=== PATIENT | female | born 1975 | race Caucasian/White ===

== ENCOUNTER 2016-10-06 19:49 | Emergency (ER) | payer OTHER ==
[2016-10-06 21:11] VITALS: BP 132/47
--- NOTE | 2016-10-06 21:34 | UC ---
Throat Pain/Nasal Diony HPI - HPI Summary HPI Summary: pt c/o nasal congestion, sinus pressure and PND X 1 month. Pt has taken a 10 day prescription of amoxicillin and a z- pack in the last 20 days. Pt reports no improvement in nasal congestion and sinus pressure. - History of Current Complaint Chief Complaint: UCGeneralIllness Stated Complaint: SINUS COMPLAINT Time Seen by Provider: 10/06/16 21:08 Hx Obtained From: Patient Hx Last Menstrual Period: 08/2016 tubal ?: No Onset/Duration: Gradual Onset, Lasting Weeks Severity: Mild Cough: Nonproductive Associated Signs & Symptoms: Positive: Hoarseness, Sinus Discomfort - Allergies/Home Medications Allergies/Adverse Reactions: Allergies Allergy/AdvReac Type Severity Reaction Status Date / Time No Known Allergies Allergy Verified 10/06/16 21:11 Home Medications: Home Medications Albiglutide [Tanzeum] 30 mg SC WEEKLY 10/06/16 [History Confirmed 10/06/16] [place]-3 Fatty Acids (Nf) [Fish Oil (NF)] 2 tab PO BID 10/06/16 [History Confirmed 10/06/16] metFORMIN* [Glucophage*] 500 mg PO BID 10/06/16 [History Confirmed 10/06/16] PMH/Surg Hx/FS Hx/Imm Hx Previously Healthy: No - see pmh Endocrine History Of: Reports: Diabetes - TYPE 2 DM, Thyroid Disease, Hypothyroidism Cardiovascular History Of: Denies: Hypertension, Pacemaker/ICD Psychological History Of: Reports: Anxiety - ON MED, Depression - ON MED - Surgical History Surgical History: Yes Surgery Procedure, Year, and Place: TONSILS AGE 3-CORTLND. 2 C-SECTIONS- [place]. TUBAL [id number] - Family History Known Family History: Positive: Other - positive [facility] for URI - Social History Alcohol Use: Rare Alcohol Amount: EVERY 6 MONTHS Substance Use Type: None Smoking Status (MU): Heavy Every Day Tobacco Smoker Type: Cigarettes Amount Used/How Often: 1 ppd Length of Time of Smoking/Using Tobacco: 27 YRS Have You Smoked in the Last Year: Yes - Immunization History Most Recent Influenza Vaccination: DID NOT RECEIVE Most Recent Tetanus Shot: UNSURE Most Recent Pneumonia Vaccination: NEVER Review of Systems Constitutional: Chills, Fatigue Skin: Negative Eyes: Negative ENT: Sore Throat, Other - nasal congestion, sinus pressure Respiratory: Cough Cardiovascular: Negative Gastrointestinal: Negative Genitourinary: Negative Motor: Negative Neurovascular: Negative Musculoskeletal: Negative Neurological: Headache Psychological: Negative All Other Systems Reviewed And Are Negative: Yes Physical Exam Triage Information Reviewed: Yes Appearance: Ill-Appearing Vital Signs: Initial Vital Signs Temp 97.3 F 10/06/16 21:04 Pulse 80 10/06/16 21:04 Resp 18 10/06/16 21:04 BP 132/47 10/06/16 21:04 Pulse Ox 100 10/06/16 21:04 Vital Signs Reviewed: Yes Eye Exam: Normal ENT Exam: Other ENT: Positive: Nasal congestion, Other: - frontal and maxillary facial pressure/ tenderness Dental Exam: Other Dental: Positive: Other: - all teeth removed Neck exam: Normal Respiratory Exam: Normal Cardiovascular Exam: Normal Musculoskeletal Exam: Normal Neurological Exam: Normal Psychological Exam: Normal Skin Exam: Normal Throat Pain/Nasal Course/Dx - Differential Dx/Diagnosis Differential Diagnosis/HQI/PQRI: Influenza, Sinusitis, URI Provider Diagnoses: Rhinosinusitis Discharge - Discharge Plan Condition: Stable Disposition: HOME Prescriptions: Loratadine & Pseudoephedrine [Claritin-D 24 Hour 10-240 mg] 1 tab PO DAILY #14 tab Patient Education Materials: Rhinosinusitis (ED) Referrals: Mitali Shea PA [Primary Care Provider] -
== END 2016-10-06 21:43 | disposition home or self-care (01) ==
LOC: UCCORT 19:49
DX: J32.9 Chronic sinusitis, unspecified (principal); E11.9 Type 2 diabetes mellitus without complications; Z79.84 Long term (current) use of oral hypoglycemic drugs; F17.210 Nicotine dependence, cigarettes, uncomplicated
CPT/HCPCS: 99212; G0463

== ENCOUNTER 2017-02-02 19:16 | Emergency (ER) | payer OTHER ==
--- NOTE | 2017-02-02 20:19 | UC ---
Throat Pain/Nasal Diony HPI - HPI Summary HPI Summary: complaint of nasal congestion that started approx 1 week ago non productive cough sore throat bilateral ear pain denies fever chills, fatigue tried muciinex without relief in the past was put on an allergy medication for the same symptoms and resolved complaint of rash under breasts for the last 3 days rash is extremely itchy tried A&D ointment without relief - History of Current Complaint Chief Complaint: UCRespiratory Stated Complaint: SINUSES Time Seen by Provider: 02/02/17 20:13 Hx Obtained From: Patient Hx Last Menstrual Period: 01/19/17 - Allergies/Home Medications Allergies/Adverse Reactions: Allergies Allergy/AdvReac Type Severity Reaction Status Date / Time No Known Allergies Allergy Verified 02/02/17 20:06 PMH/Surg Hx/FS Hx/Imm Hx Previously Healthy: Yes Endocrine History: Diabetes, Dyslipidemia Cardiovascular History: Hypertension Psychological History: Anxiety, Depression - Surgical History Surgical History: Yes Surgery Procedure, Year, and Place: TONSILS AGE 3-CORTLND. 2 C-SECTIONS- [place]. TUBAL [id number] - Family History Known Family History: Positive: Other - positive [facility] for URI - Social History Occupation: Employed Full-time Lives: With Family Alcohol Use: Rare Alcohol Amount: EVERY 6 MONTHS Substance Use Type: None Smoking Status (MU): Heavy Every Day Tobacco Smoker Type: Cigarettes Amount Used/How Often: 4-5 per day Length of Time of Smoking/Using Tobacco: 27 YRS Have You Smoked in the Last Year: Yes Cessation Counseling: Patient Advised to Stop - Immunization History Most Recent Influenza Vaccination: DID NOT RECEIVE Most Recent Tetanus Shot: UNSURE Most Recent Pneumonia Vaccination: NEVER Review of Systems Constitutional: Negative Skin: Rash Eyes: Negative ENT: Sore Throat, Ear Ache, Nasal Discharge Respiratory: Cough Cardiovascular: Negative Gastrointestinal: Negative Genitourinary: Negative Motor: Negative Neurovascular: Negative Musculoskeletal: Negative Neurological: Negative Psychological: Negative All Other Systems Reviewed And Are Negative: Yes Physical Exam Triage Information Reviewed: Yes Appearance: No Pain Distress, Well-Nourished Vital Signs: Initial Vital Signs Temp 98.3 F 02/02/17 19:59 Pulse 81 02/02/17 19:59 Resp 18 02/02/17 19:59 BP 123/63 02/02/17 19:59 Pulse Ox 98 02/02/17 19:59 Vital Signs Reviewed: Yes Eyes: Positive: Conjunctiva Clear ENT: Positive: Pharyngeal erythema, Nasal congestion, Nasal drainage, TMs normal. Negative: Tonsillar swelling, Tonsillar exudate Neck: Positive: No Lymphadenopathy Respiratory: Positive: Lungs clear, Normal breath sounds, No respiratory distress, No accessory muscle use Cardiovascular: Positive: RRR, No Murmur, Pulses Normal Abdomen Description: Positive: Nontender, Soft Bowel Sounds: Positive: Present Musculoskeletal: Positive: No Edema Neurological: Positive: Alert Psychological Exam: Normal Skin: Positive: Other - under breasts - bright red Throat Pain/Nasal Course/Dx - Differential Dx/Diagnosis Differential Diagnosis/HQI/PQRI: URI Provider Diagnoses: seasonal allergies, fungel rash under breasts ,URI Discharge - Discharge Plan Condition: Stable Disposition: HOME Prescriptions: Benzonatate CAP* [Tessalon 100 MG CAP*] 100 mg PO TID #30 cap Clotrimazole 1% CREAM* [Clotrimazole 1%*] 1 applic TOPICAL BID #1 tube Loratadine & Pseudoephedrine [Claritin-D 24 Hour 10-240 mg] 1 tab PO DAILY #14 tab Patient Education Materials: Allergies (ED), Upper Respiratory Infection (ED), Antifungals (On the skin) Referrals: Mitali Shea PA [Primary Care Provider] - Additional Instructions: Please start clotrimazole on rash as directed, keep rash clean and dry start medication for cough and nasal congestion as directed Increase fluids and rest Take acetaminophen or ibuprofen for fever or pain Please review your discharge instructions. If your symptoms do not improve please call your primary care provider or return to urgent care.
[2017-02-02 20:30] VITALS: BP 123/63
== END 2017-02-02 20:40 | disposition home or self-care (01) ==
LOC: UCCORT 19:16
DX: J30.2 Other seasonal allergic rhinitis (principal); B36.9 Superficial mycosis, unspecified; J06.9 Acute upper respiratory infection, unspecified; E11.9 Type 2 diabetes mellitus without complications; E78.5 Hyperlipidemia, unspecified; I10 Essential (primary) hypertension; F41.9 Anxiety disorder, unspecified; F32.9 Major depressive disorder, single episode, unspecified; F17.210 Nicotine dependence, cigarettes, uncomplicated
CPT/HCPCS: 99212; G0463

== ENCOUNTER 2017-05-14 11:30 | Emergency (ER) | payer OTHER ==
[2017-05-14 12:23] VITALS: BP 149/83
--- NOTE | 2017-05-14 12:50 | UC ---
Respiratory Complaint HPI - HPI Summary HPI Summary: cough and congestion for 5 days. Rafaelaphillyandres gabyalex has helped in the past. - History of Current Complaint Chief Complaint: UCRespiratory Stated Complaint: CONGESTION,COUGH Time Seen by Provider: 05/14/17 12:17 Hx Obtained From: Patient, Family/[facility] Counselor Hx Last Menstrual Period: 05/08/17 Onset/Duration: Gradual Onset, Lasting Days Timing: Constant Severity Initially: Moderate Severity Currently: Moderate Character: Cough: Nonproductive Aggravating Factors: Deep Breaths, Recumbent Position Alleviating Factors: Nothing Associated Signs And Symptoms: Positive: URI, Nasal Congestion, Hoarseness. Negative: Fever, Chills, Pleuritic Chest Pain, Wheezing, Hemoptysis, Dizziness, Calf Pain, Calf Swelling - Risk Factors Pulmonary Embolism Risk Factors: Smoking - Allergies/Home Medications Allergies/Adverse Reactions: Allergies Allergy/AdvReac Type Severity Reaction Status Date / Time seasonal Allergy Coughing Uncoded 05/14/17 12:23 PMH/Surg Hx/FS Hx/Imm Hx Previously Healthy: No - smoker. - Surgical History Surgical History: Yes Surgery Procedure, Year, and Place: TONSILS AGE 3-CORTLND. 2 C-SECTIONS- [place]. TUBAL [id number] - Family History Known Family History: Positive: Other - positive [facility] for URI - Social History Lives: With Family Alcohol Use: Rare Alcohol Amount: EVERY 6 MONTHS Substance Use Type: None Smoking Status (MU): Heavy Every Day Tobacco Smoker Type: Cigarettes Amount Used/How Often: 1 ppd Length of Time of Smoking/Using Tobacco: 27 YRS Have You Smoked in the Last Year: Yes - Immunization History Most Recent Influenza Vaccination: DID NOT RECEIVE Most Recent Tetanus Shot: UNSURE Most Recent Pneumonia Vaccination: NEVER Review of Systems ENT: Sore Throat, Sinus Congestion Respiratory: Cough All Other Systems Reviewed And Are Negative: Yes Physical Exam Triage Information Reviewed: Yes Appearance: Well-Appearing, Well-Nourished, Obese Vital Signs: Initial Vital Signs Temp 98 F 05/14/17 12:16 Pulse 71 05/14/17 12:16 Resp 20 05/14/17 12:16 BP 149/83 05/14/17 12:16 Pulse Ox 96 05/14/17 12:16 Vital Signs Reviewed: Yes Eye Exam: Normal ENT: Positive: Pharyngeal erythema, TMs normal. Negative: Tonsillar swelling, Tonsillar exudate, Trismus, Muffled/hoarse voice Neck exam: Normal Neck: Positive: Supple, Nontender, No Lymphadenopathy Respiratory Exam: Other - negative egophony. Respiratory: Positive: Normal breath sounds, No respiratory distress, No accessory muscle use. Negative: Respiratory distress, Decreased breath sounds, Accessory muscle use, Crackles, Rhonchi, Stridor, Wheezing Cardiovascular: Positive: No Murmur Abdominal Exam: Normal Musculoskeletal Exam: Normal Musculoskeletal: Positive: Strength Intact, ROM Intact, No Edema Neurological Exam: Normal Psychological Exam: Normal Skin Exam: Normal UC Diagnostic Evaluation - Laboratory O2 Sat by Pulse Oximetry: 96 Respiratory Course/Dx - Course Course Of Treatment: viral uri symptoms. we discussed supportive care and delayed antibiotics to be started on day 9-10 if not improving. - Differential Dx/Diagnosis Provider Diagnoses: uri Discharge - Discharge Plan Condition: Good Disposition: HOME Prescriptions: Azithromyxin GOVIND (NF) [Z-Govind (Zithromax) 250 mg tabs #6] 1 tab PO .TODAY, THEN 1 DAILY #6 tab Benzonatate CAP* [Tessalon 100 MG CAP*] 100 mg PO TID PRN #20 cap PRN Reason: Cough Loratadine & Pseudoephedrine [Claritin-D 24 Hour 10-240 mg] 1 tab PO DAILY #14 tab Patient Education Materials: Upper Respiratory Infection (ED) Referrals: Mitali Shea PA [Primary Care Provider] - If Needed Additional Instructions: start azithromycin if not improving in another 4 days.
== END 2017-05-14 12:51 | disposition home or self-care (01) ==
LOC: UCCORT 11:30
DX: J06.9 Acute upper respiratory infection, unspecified (principal); F17.210 Nicotine dependence, cigarettes, uncomplicated
CPT/HCPCS: 99212; G0463

== ENCOUNTER 2018-02-01 15:55 | Emergency (ER) | payer OTHER ==
[2018-02-01 16:19] VITALS: BP 123/77
--- NOTE | 2018-02-01 16:56 | UC ---
Skin Complaint HPI - HPI Summary HPI Summary: Minimal pain, but yesterday had drainage of an abscess from the right lateral breast. This was primarily blood draiange. Today she has increasing redness of the right breast tissue, mild tenderness, no fever. Diabetic, on multiple meds with good control. - History of Current Complaint Chief Complaint: UCSkin Time Seen by Provider: 02/01/18 16:16 Stated Complaint: RIGHT BREAST SKIN COMPLAINT Hx Obtained From: Patient Hx Last Menstrual Period: 01/16/18 Onset/Duration: Gradual Onset, Lasting Days - 2 Timing: Constant Onset Severity: Mild Current Severity: Moderate Pain Intensity: 0 Location: Discrete - right outer breast Aggravating Factor(s): Touch Alleviating Factor(s): Nothing Associated Signs & Symptoms: Positive: Negative - Allergy/Home Medications Allergies/Adverse Reactions: Allergies Allergy/AdvReac Type Severity Reaction Status Date / Time seasonal Allergy Coughing Uncoded 05/14/17 12:23 Home Medications: Home Medications Multivitamin [Daily Multiple Vitamin] 1 each PO DAILY 02/01/18 [History Confirmed 02/01/18] Varenicline (NF) [Chantix 1 MG TAB (NF)] 1 mg PO BID 02/01/18 [History Confirmed 02/01/18] Review of Systems Constitutional: Negative, Other - States that her diabetes is under good control , fasting fingerstick glucose readings are 80 to 90 Skin: Other - draining wound right breast Eyes: Negative ENT: Negative Respiratory: Negative Cardiovascular: Negative Gastrointestinal: Negative Genitourinary: Negative Motor: Negative Neurovascular: Negative Musculoskeletal: Negative Neurological: Negative Psychological: Negative Is Patient Immunocompromised?: No All Other Systems Reviewed And Are Negative: Yes PMH/Surg Hx/FS Hx/Imm Hx Endocrine History: Diabetes Psychological History: Depression - Surgical History Surgical History: Yes Surgery Procedure, Year, and Place: TONSILS AGE 3-CORTLND. 2 C-SECTIONS- [place]. TUBAL [id number] - Family History Known Family History: Positive: Cardiac Disease - son with congenital heart disease., Diabetes - mother, Other - positive [facility] - Social History Occupation: Disabled Lives: With Family Alcohol Use: Rare Alcohol Amount: EVERY 6 MONTHS Substance Use Type: None Smoking Status (MU): Light Every Day Tobacco Smoker Type: Cigarettes Amount Used/How Often: 1 CIG PER DAY-QUITTING Length of Time of Smoking/Using Tobacco: 27 YRS Have You Smoked in the Last Year: Yes Household Exposure Type: Cigarettes - Immunization History Most Recent Influenza Vaccination: DID NOT RECEIVE Most Recent Tetanus Shot: UNSURE Most Recent Pneumonia Vaccination: NEVER Physical Exam Triage Information Reviewed: Yes Appearance: No Pain Distress, Obese Vital Signs: Initial Vital Signs Temp 97.9 F 02/01/18 16:10 Pulse 78 02/01/18 16:10 Resp 17 02/01/18 16:10 BP 123/77 02/01/18 16:10 Pulse Ox 100 02/01/18 16:10 Respiratory: Positive: Lungs clear, Normal breath sounds Cardiovascular: Positive: RRR, No Murmur Musculoskeletal Exam: Normal Neurological: Positive: Alert, Muscle Tone Normal Psychological Exam: Normal Skin Exam: Other - right lateral breast, upper quadrant with 6 x 4.5 cm area of erythema with central area of drainage. Open area of granulation tissue approx 8 x 6 mm. Scant drainage. No lymphangitis. Course/Dx - Course Course Of Treatment: antibiotics for treatment of cellulitis and abscess. Will cover for possible MRSA - Differential Diagnoses - Skin Complaint Differential Diagnoses: Abscess, Cellulitis - Diagnoses Provider Diagnoses: cellulitis and abscess right breast. Discharge - Sign-Out/Discharge Documenting (check all that apply): Discharge/Admit/Transfer - Discharge Plan Condition: Stable Disposition: HOME Prescriptions: cephALEXin [Keflex] 500 mg PO QID #28 capsule Sulfamethox/Trimethoprim DS* [Bactrim DS 800/160 TAB*] 1 tab PO BID #14 tab Patient Education Materials: Cellulitis (ED) Referrals: Mitali Shea PA [Primary Care Provider] - Additional Instructions: You are being started on 2 antibiotics pending culture, because it is possible that the infection is a bacteria called MRSA ( a type of Staph aureus). Anticipate possible diarrhea as a side effect of this, and ensure that you are eating foods with probiotics, such as yogurt. Twice daily, remove the dressing, and cleanse the infected area with warm soap and water, and dry well. Apply a light layer of an over the counter topical antibiotic, such as triple antibiotic ointment. Use a non-stick dressing area over. The culture will be reported on Monday, and you can call for results. Follow up if you develop a fever or if you are not seeing improvement after 2 days. The wound will take close to 2 weeks to heal completely. - Billing Disposition and Condition Condition: STABLE Disposition: Home
--- NOTE | 2018-02-04 07:25 | UC ---
- Progress Note Progress Note: Culture positive for Staph but not MRSA. She can STOP the bactrim and complete the course of cephalexin for treatment of her cellulitis. Should be improving. Discharge - Sign-Out/Discharge Documenting (check all that apply): Discharge/Admit/Transfer - Discharge Plan Condition: Stable Disposition: HOME Prescriptions: cephALEXin [Keflex] 500 mg PO QID #28 capsule Sulfamethox/Trimethoprim DS* [Bactrim DS 800/160 TAB*] 1 tab PO BID #14 tab Patient Education Materials: Cellulitis (ED) Referrals: Mitali Shea PA [Primary Care Provider] - Additional Instructions: You are being started on 2 antibiotics pending culture, because it is possible that the infection is a bacteria called MRSA ( a type of Staph aureus). Anticipate possible diarrhea as a side effect of this, and ensure that you are eating foods with probiotics, such as yogurt. Twice daily, remove the dressing, and cleanse the infected area with warm soap and water, and dry well. Apply a light layer of an over the counter topical antibiotic, such as triple antibiotic ointment. Use a non-stick dressing area over. The culture will be reported on Monday, and you can call for results. Follow up if you develop a fever or if you are not seeing improvement after 2 days. The wound will take close to 2 weeks to heal completely. - Billing Disposition and Condition Condition: STABLE Disposition: Home
== END 2018-02-01 17:28 | disposition home or self-care (01) ==
LOC: UCCORT 15:55
DX: N61.0 Mastitis without abscess (principal); A49.01 Methicillin susceptible Staphylococcus aureus infection, unspecified site; Z16.29 Resistance to other single specified antibiotic; F17.210 Nicotine dependence, cigarettes, uncomplicated; N61.1 Abscess of the breast and nipple; E11.9 Type 2 diabetes mellitus without complications
CPT/HCPCS: 87070; 87077; 87186; 87205; 99212; G0463

== ENCOUNTER 2018-02-16 18:23 | Emergency (ER) | payer OTHER ==
[2018-02-16 18:37] VITALS: BP 133/74
--- NOTE | 2018-02-16 18:57 | UC ---
General HPI - HPI Summary HPI Summary: Patient presents complaining of increasing sinus pain pressure and congestion for over a week. She notes the drainage is becoming yellow. It is causing postnasal drip and cough. She's had sinus infection in the past and this feels the same. She denies any itchy watery eyes or sneezing. She denies any history of allergies. - History of Current Complaint Chief Complaint: UCGeneralIllness Stated Complaint: SINUS ISSUE Time Seen by Provider: 02/16/18 18:51 Hx Obtained From: Patient Hx Last Menstrual Period: 01/19/18 Onset/Duration: Gradual Onset Timing: Constant Pain Intensity: 0 - Allergy/Home Medications Allergies/Adverse Reactions: Allergies Allergy/AdvReac Type Severity Reaction Status Date / Time seasonal Allergy Coughing Uncoded 02/16/18 18:33 Home Medications: Home Medications Escitalopram (NF) [Lexapro 20 mg (NF)] 20 mg PO DAILY 02/16/18 [History Confirmed 02/16/18] Pioglitazone TAB* [Actos TAB*] 45 mg PO DAILY 02/16/18 [History Confirmed ] buPROPion SR TAB* [Wellbutrin SR TAB*] 150 mg PO BID 02/16/18 [History Confirmed 02/16/18] PMH/Surg Hx/FS Hx/Imm Hx - Additional Past Medical History Additional PMH: CHRONIC BACK PAIN Endocrine History: Diabetes, Dyslipidemia Cardiovascular History: Hypertension Psychological History: Anxiety, Depression - Surgical History Surgical History: Yes Surgery Procedure, Year, and Place: TONSILS AGE 3-CORTLND. 2 C-SECTIONS- [place]. TUBAL [id number] - Family History Known Family History: Positive: Cardiac Disease - son with congenital heart disease., Diabetes - mother, Other - positive [facility] for URI - Social History Occupation: Disabled Lives: With Family Alcohol Use: Rare Alcohol Amount: EVERY 6 MONTHS Substance Use Type: None Smoking Status (MU): Light Every Day Tobacco Smoker Type: Cigarettes Amount Used/How Often: 3-4 CIG PER DAY-QUITTING Length of Time of Smoking/Using Tobacco: 27 YRS Have You Smoked in the Last Year: Yes Household Exposure Type: Cigarettes - Immunization History Most Recent Influenza Vaccination: DID NOT RECEIVE Most Recent Tetanus Shot: UNSURE Most Recent Pneumonia Vaccination: NEVER Vaccination Up to Date: Yes Review of Systems Constitutional: Negative Skin: Negative Eyes: Negative ENT: Nasal Discharge, Sinus Congestion Respiratory: Negative Cardiovascular: Negative Gastrointestinal: Negative Genitourinary: Negative Motor: Negative Neurovascular: Negative Musculoskeletal: Other: - chronic back pain Neurological: Negative Psychological: Negative Is Patient Immunocompromised?: No All Other Systems Reviewed And Are Negative: Yes Physical Exam Triage Information Reviewed: Yes Appearance: Well-Appearing Vital Signs: Initial Vital Signs Temp 98.1 F 02/16/18 18:32 Pulse 78 02/16/18 18:32 Resp 18 02/16/18 18:32 BP 133/74 02/16/18 18:32 Pulse Ox 96 02/16/18 18:32 Vital Signs Reviewed: Yes Eyes: Positive: Conjunctiva Clear ENT: Positive: Pharynx normal, Nasal congestion, TMs normal, Sinus tenderness - maxillary. Negative: Nasal drainage Neck: Positive: Supple, Nontender, No Lymphadenopathy Respiratory: Positive: Lungs clear, Normal breath sounds Cardiovascular: Positive: RRR, No Murmur Abdomen Description: Positive: Nontender, No Organomegaly, Soft. Negative: Distended, Guarding Bowel Sounds: Positive: Present Musculoskeletal: Positive: ROM Intact Neurological: Positive: Alert Psychological: Positive: Normal Response To Family, Age Appropriate Behavior Skin Exam: Normal Course/Dx - Differential Dx - Multi-Symptom Provider Diagnoses: sinusitis Discharge - Sign-Out/Discharge Documenting (check all that apply): Discharge/Admit/Transfer - Discharge Plan Condition: Stable Disposition: HOME Prescriptions: Amoxicillin/Clavulanate TAB* [Augmentin TAB 875*] 875 mg PO BID #20 tab Patient Education Materials: Sinusitis (ED) Referrals: Mitali Shea PA [Primary Care Provider] - 7 Days - Billing Disposition and Condition Condition: STABLE Disposition: Home
== END 2018-02-16 19:02 | disposition home or self-care (01) ==
LOC: UCCORT 18:23
DX: J32.9 Chronic sinusitis, unspecified (principal); E11.9 Type 2 diabetes mellitus without complications; F41.8 Other specified anxiety disorders; I10 Essential (primary) hypertension; Z79.84 Long term (current) use of oral hypoglycemic drugs; F17.210 Nicotine dependence, cigarettes, uncomplicated
CPT/HCPCS: 99212; G0463

== ENCOUNTER → 2019-04-29 10:19 | Day surgery (SDC) | payer OTHER ==
[~2019-04-29 10:19] MED LIST: Diazepam TAB(*) 5 MG ONE; Heparin 2 UNITS/ML IVPREMIX* 2,000 ML IV ONE; Heparin(*) 1000 UNIT/ML 10 ML VIAL CATH LAB IV ONE; Iohexol 350 (CONTRAST) 200 ML MDV IV ONE; Lidocaine 1% INJ* 10 MG/ML 30 ML SDV ONE; Midazolam* 1 MG/ML 5 ML VIAL (5 MG) ONE; NS 0.9% 1000 ML** 1,000 ML IV SCH; VERAPAMIL 2.5 MG/ML 2 ML VIAL ** 5 mg/2 ml ONE; diPHENhydraMINE PO* 25 MG ONE; fentaNYL* 50 MCG/ML 2 ML VIAL (100 MCG VIAL) ONE; nitroGLYCERIN DRIP* 25,000 MCG/250 ML BTL ONE
[2019-04-29 17:03] VITALS: BP 129/78
--- NOTE | 2019-04-30 20:53 | CATH ---
CC: SHERITA [place]; Dr. Canela; Dr. Cleveland * CATH REPORT: DATE OF PROCEDURE: 04/29/19 - [facility] CATH PRIMARY CARE PHYSICIAN: SHERITA [place] BLADDER TIER: Dr. Canela. SURGEON: Dr. Cleveland. PROCEDURES: Right radial artery access with ultrasound guidance, bilateral selective coronary cineangiography, left heart catheterization, left ventriculography. HISTORY: A 43-year-old morbidly obese woman being evaluated prior to bariatric surgery. Nuclear stress imaging was high risk with a large area of LAD territory ischemia. She was referred for coronary angiography. PROCEDURE ACCESS: Right radial artery sheath 6F slender. MEDICATIONS: 1. Subcu lidocaine. 2. IV Versed. 3. IV fentanyl. 4. Heparin 3000 units. 5. Verapamil 3 mg. 6. Nitroglycerin 300 mcg IA. DIAGNOSTIC CATHETERS: 5F TIG4, 5F pigtail. HEMODYNAMICS: Initial AO 115/79, LV 128/15-22, no aortic valve gradient on pullback. ANGIOGRAPHY: Left main: The left main is normal in size, is smooth, has no stenosis. LAD: The LAD is moderate in size, extends to the apex, it supplies a large diagonal branch, the LAD system has minimal irregularity, no significant stenosis. Circumflex: The circumflex is not dominant, is large with a large first marginal branch, ends with a smaller posterolateral, the circumflex has no stenosis. RCA: The RCA is dominant, large, with scattered calcification with scattered mild nonobstructive plaque. At the acute margin, there was a 30% stenosis. The PDA is large, followed by a smaller posterolateral. LV gram: She has a normal wall motion, estimated LVEF 55% to 60%. There is no mitral regurgitation. CONCLUSION: 1. No significant obstructive coronary disease with diffuse nonobstructive calcification and plaquing in the RCA. 2. Normal LV systolic function. 3. Elevated LVDP consistent with diastolic dysfunction. 4. Successful right radial artery access. [id number]/[facility] #: [id number] [facility] HOSPITALKeila
== END | disposition home or self-care (01) ==
LOC: CHICATH 10:19
PROVIDERS: ATTEND Specialist
DX: R94.39 Abnormal result of other cardiovascular function study (principal); E66.01 Morbid (severe) obesity due to excess calories; I10 Essential (primary) hypertension; E11.9 Type 2 diabetes mellitus without complications; Z79.84 Long term (current) use of oral hypoglycemic drugs; F17.211 Nicotine dependence, cigarettes, in remission; E03.9 Hypothyroidism, unspecified; K21.9 Gastro-esophageal reflux disease without esophagitis; E78.5 Hyperlipidemia, unspecified
CPT/HCPCS: 93458; 99156; 99157; A9270-GY; J1644; J2250; J3010

== ENCOUNTER 2019-07-03 05:41 | Day surgery (SDC) | payer OTHER ==
[~2019-07-03 05:41] MED LIST changes: +Buffered Lidocaine 1% SYRIN* 1 ML/SYRINGE INTRADERM ONE; -Diazepam TAB(*) 5 MG ONE; -Heparin 2 UNITS/ML IVPREMIX* 2,000 ML IV ONE; -Heparin(*) 1000 UNIT/ML 10 ML VIAL CATH LAB IV ONE; -Iohexol 350 (CONTRAST) 200 ML MDV IV ONE; -Lidocaine 1% INJ* 10 MG/ML 30 ML SDV ONE; -Midazolam* 1 MG/ML 5 ML VIAL (5 MG) ONE; -NS 0.9% 1000 ML** 1,000 ML IV SCH; -VERAPAMIL 2.5 MG/ML 2 ML VIAL ** 5 mg/2 ml ONE; -diPHENhydraMINE PO* 25 MG ONE; -fentaNYL* 50 MCG/ML 2 ML VIAL (100 MCG VIAL) ONE; -nitroGLYCERIN DRIP* 25,000 MCG/250 ML BTL ONE
--- OUTSIDE RECORDS SUMMARY | 2019-07-03 05:45 | XMS REPORT | Continuity of Care Document ---
:1975 External Reference #:[id number] Author Name Zafar Canela DO FAC (transmitted by agent of provider Radha Edgar) Address [address] [place] [address] Care Team Providers Name Role Phone Gillian Maier MD - Care Team Information Head Screen Worker [phone] Endocrinology, Diabetes & Metabolism Sulaiman Otto MD - Family Care Team Information Head Screen Worker Medicine Mitali Shea PA - Physician Certified Medicine Aide Care Team Information Head Screen Worker Problems Active Problems Provider Date Arthrodesis by anterior interbody technique Angel Worrell M.D. Onset: of cervical region below C2 with bone graft Lumbar spondylosis Angel Worrell M.D. Onset: 07/22/2015 Low back pain Angel Worrell M.D. Onset: 04/15/2015 Lumbosacral spondylosis without myelopathy Angel Worrell M.D. Onset: Simple phobia Onset: 06/18/2018 Gynecologic examination Onset: 07/19/2012 Anxiety state Onset: 07/19/2012 Gastroesophageal reflux disease Onset: 07/19/2012 Dysmenorrhea Onset: 07/19/2012 Tobacco user Onset: 07/19/2012 Adjustment disorder with depressed mood Onset: 07/19/2012 Mixed hyperlipidemia Onset: 07/19/2012 Type 2 diabetes mellitus with multiple Onset: 07/19/2012 complications Hypothyroidism Onset: 06/18/2018 Morbid obesity Onset: 06/18/2018 Localized, primary osteoarthritis of the Onset: 06/18/2018 hand Social History Type Date Description Comments Sex Unknown Tobacco Use Start: Unknown Patient is a current cigarette smoker, smokes every day Smoking Status Reviewed: 05/06/19 Patient is a current cigarette smoker, smokes every day ETOH Use Denies alcohol use very rare Recreational Drug Use Never Used Drugs Tobacco Use Start: Unknown Light tobacco smoker (10 or 1-2 daily fewer cigarettes/day) Exercise Type/Frequency Exercises rarely Allergies, Adverse Reactions, Alerts Description No Known Drug Allergies Medications Active Medications SIG Qnty Indications Ordering Date Provider Freestyle Lite Test Use Daily And as 50units Sulaiman 03/21/2019 Needed For MD Fam Strip Glucose Testing Chantix Continuing Take One Tablet 56tabs 11/07/2018 Month Govind By Mouth Twice A MD Fam 1mg Tablets Day Unilet Comfortouch Use Daily & as 100units 10/17/2018 Lancet Needed For MD Fam Glucose Testing Atorvastatin Calcium Take One Tablet 90tabs 09/10/2018 By Mouth Every MD Fam 40mg Tablets Day Levothyroxine Sodium Take One Tablet 30tabs 09/10/2018 By Mouth Every MD Fam 125mcg Tablets Day Trulicity Use Once Weekly 2units E11.69 Sulaiman 06/21/2018 1.5mg/0.5ML as Directed MD Fam Solution Pen-Inject Bupropion HCL ER (XL) Take One Tablet 30tabs F43.21 Sulaiman 09/24/2012 By Mouth Every MD Fam 150mg Tablets ER 24HR Day Fish Oil Ultra 4 tabs by mouth Sulaiman 04/26/2012 1000mg every day MD Fam Capsules Pioglitazone HCL Take One Tablet 30tabs 45mg By Mouth Every MD Fam Tablets Day Venlafaxine HCL ER Take One Capsule 30caps By Mouth Every MD Fam 37.5mg Caps ER 24HR Day Metformin HCL ER Take Two Tablets 120tabs 500mg By Mouth Every MD Fam Tablets ER 24HR Morning And 2 AT Night Loratadine Take One Tablet 30tabs 10mg Tablets By Mouth Every MD Fam Day Famotidine Take One Tablet 30tabs 40mg Tablets By Mouth Every MD Fam Day Escitalopram Oxalate Take One Tablet 30tabs Sulaiman By Mouth Every MD Fam 20mg Tablets Day Glipizide XL one po bid 60tabs Sulaiman 10mg MD Fam Tablets ER 24HR Lisinopril Take One Tablet 30tabs Sulaiman 2.5mg By Mouth Every MD Fam Tablets Day History Medications Amoxicillin 1 by mouth 20tabs J01.90 Sulaiman Otto, 11/28/2018 - 875mg twice a day 01/27/2019 Tablets Medications Administered in Office Medication SIG Qnty Indications Ordering Provider Date Inj, Regadenoson, 0.1 MG Zafar Canela, DO [facility] 04/10/2019 Injection Technetium TC 99M Zafar Canela, DO [facility] 04/10/2019 Tetrofosmin, Per Unit Dose Up To 40 Millicuries Injection Technetium TC 99M Zafar Canela, DO [facility] 04/10/2019 Tetrofosmin, Per Unit Dose Up To 40 Millicuries Injection Immunizations CPT Code Status Date Vaccine Lot # 30947 Given 03/04/2016 Tdap - Tetanus/Diptheria/Acellular Pertussis 13101 Given 05/21/2014 Influenza Virus 3Yrs & Over 12529 Refused 06/13/2018 Influenza Virus Vaccine, Quadrivalent, Split, Im Use 6-35mo 56281 Refused 06/05/2017 Influenza Virus Vaccine, Quadrivalent, Split, Im Use 6-35mo 15721 Refused 06/06/2016 Influenza Virus Vaccine, Quadrivalent, Split, Im Use 6-35mo Vital Signs Date Vital Result Comment 05/06/2019 1:37pm Height 67 inches 5'7" Weight 317.00 lb with shoes Heart Rate 70 /min BP Systolic Sitting 130 mmHg Lue BP Diastolic Sitting 60 mmHg Lue BP Systolic Standing 126 mmHg Lue BP Diastolic Standing 70 mmHg Lue BMI (Body Mass Index) 49.6 kg/m2 Ejection Fraction NONE 04/18/2019 4:14pm Weight 318.00 lb with shoes Heart Rate 70 /min BP Systolic Sitting 120 mmHg Lue lg cuff BP Diastolic Sitting 80 mmHg Lue lg cuff BP Systolic Standing 124 mmHg Lue lg cuff BP Diastolic Standing 80 mmHg Lue lg cuff Respiratory Rate 16 /min Results Test Date Facility Test Result H/L Range Note Inr/Protime 04/26/2019 [facility] Inr 1.01 Normal 0.82-1.[address] [place] [address] [phone] Laboratory test 04/26/2019 [facility] Partial 40.5 seconds High 26.0-38.[address] [place] [address] PTT [phone] CBC Auto Diff 04/26/2019 [facility] White Blood 8.5 10^3/uL Normal 3.5-10.[address] [place] [address] [phone] Red Blood Count 4.43 10^6/uL Normal 3.70-4.87 Hemoglobin 13.3 g/dL Normal 12.0-16.0 Hematocrit 39 % Normal 35-47 Mean Corpuscular Volume 89 fL Normal 80-97 Mean Corpuscular Hemoglobin 30 pg Normal 27-31 Mean Corpuscular HGB Conc 34 g/dL Normal 31-36 Red Cell Distribution Width 15 % Normal 10-15 Platelet Count 289 10^3/uL Normal 150-450 Mean Platelet Volume 8.8 fL Normal 7.4-10.4 Abs Neutrophils 5.3 10^3/uL Normal 1.5-7.7 Abs Lymphocytes 2.6 10^3/uL Normal 1.0-4.8 Abs Monocytes 0.5 10^3/uL Normal 0-0.8 Abs Eosinophils 0.1 10^3/uL Normal 0-0.6 Abs Basophils 0.1 10^3/uL Normal 0-0.2 Abs Nucleated RBC 0.0 10^3/uL Granulocyte % 61.9 % Lymphocyte % 30.6 % Monocyte % 5.9 % Eosinophil % 0.9 % Basophil % 0.7 % Nucleated Red Blood Cells % 0.0 Basic Metabolic 04/26/2019 [facility] Sodium 137 mmol/L Normal 135-[address] [place] [address] [phone] Potassium 4.5 mmol/L Normal 3.5-5.0 Chloride 102 mmol/L Normal 101-111 Co2 Carbon Dioxide 26 mmol/L Normal 22-32 Anion Gap 9 mmol/L Normal 2-11 Glucose 107 mg/dL High 70-100 Blood Urea Nitrogen 16 mg/dL Normal 6-24 Creatinine 0.64 mg/dL Normal 0.51-0.95 BUN/Creatinine Ratio 25.0 High 8-20 Calcium 9.9 mg/dL Normal 8.6-10.3 Egfr Non- 100.3 >60 Egfr 121.4 >60 2 Cath Panel 04/19/2019 [facility] Partial Thrombo Time PTT < pending> [address] [place] [address] [phone] 1 Standard intensity warfarin therapeutic range: 2.0-3.0 High intensity warfarin therapeutic range: 2.5-3.5 2 Because ethnic data is not always readily available, this report includes an eGFR for both -Americans and non- Americans. The National Kidney Disease Education Program (NKDEP) does not endorse the use of the MDRD equation for patients that are not between the ages of 18 and 70, are , have extremes of body size, muscle mass, or nutritional status, or are non- or non-. According to the National Kidney Foundation, irrespective of diagnosis, the stage of the disease is based on the level of kidney function: Stage Description GFR(mL/min/1.73 m(2)) 1 Kidney damage with normal or decreased GFR 90 2 Kidney damage with mild decrease in GFR 60-89 3 Moderate decrease in GFR 30-59 4 Severe decrease in GFR 15-29 5 Kidney failure <15 (or dialysis) Procedures Date Code Description Status 04/10/2019 33363 Stress Test Completed 04/10/2019 79998 Myocardial Perfusion Imaging Tomographic (Spect) Completed Multiple Studies 03/18/2019 65681 Treadmill Interp/Report Only Completed 03/18/2019 58794 Stress Test Supervsn W/Out I/R Completed 01/28/2019 06159 EKG Tracing & Interpretation Completed 12/31/2018 [id number] Mammogram Completed 12/21/2017 [id number] Mammogram Completed 03/08/2016 [id number] Diabetic Retinal Eye Exam Completed Medical Devices Description No Information Available Encounters Type Date Location Provider Dx Diagnosis Office Visit 04/18/2019 [place] [facility] Zafar Gordon R94.39 Abnormal result of 4:40p [facility] [employer] DO LESLEE Canela other cardiovascular function study E11.9 Type 2 diabetes mellitus without complications Z72.0 Tobacco use E66.8 Other obesity Z01.810 Encounter for preprocedural cardiovascular examination I10 Essential (primary) hypertension E78.5 Hyperlipidemia, unspecified Office Visit 03/04/2019 8:00a [facility] [place] E11.9 Type 2 diabetes Care mellitus without complications E78.5 Hyperlipidemia, unspecified I10 Essential (primary) hypertension E66.8 Other obesity Z72.0 Tobacco use Office Visit 01/28/2019 [place] Zafar Gordon Z01.810 Encounter for 1:[facility] cardiovascular examination Z72.0 Tobacco use E11.9 Type 2 diabetes mellitus without complications E78.5 Hyperlipidemia, unspecified I10 Essential (primary) hypertension E66.8 Other obesity R94.31 Abnormal electrocardiogram [ECG] [EKG] Z68.42 Body mass index (BMI) 45.0-49.9, adult Office Visit 11/28/2018 4:15p [facility] [place] Z00.01 Encounter for general adult medical exam w abnormal findings Z12.31 Encntr screen mammogram for malignant neoplasm of breast J01.90 Acute sinusitis, unspecified E11.9 Type 2 diabetes mellitus without complications Assessments Date Code Description Provider 05/06/2019 Z01.810 Encounter for preprocedural Zafar Mikemike DO [facility] cardiovascular examination 05/06/2019 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 function study 04/18/2019 R94.39 Abnormal result of other cardiovascular Zafar Canela DO FAC function study 04/18/2019 E11.9 Type 2 diabetes mellitus without Zafar S. Canela, DO FAC complications 04/18/2019 Z72.0 Tobacco use Zafar Mikeno, DO FACC 04/18/2019 E66.8 Other obesity Zafar S. Canela, DO FACC 04/18/2019 Z01.810 Encounter for preprocedural Zafar S. Canela, DO [facility] cardiovascular examination 04/18/2019 I10 Essential (primary) hypertension Zafar SDada Mikeno, DO FACC 04/18/2019 E78.5 Hyperlipidemia, unspecified Zafar S. Canela, DO FACC 04/10/2019 Z01.810 Encounter for preprocedural Zafar S. Canela, DO [facility] cardiovascular examination 04/10/2019 E11.9 Type 2 diabetes mellitus without Zafar S. Canela, DO [facility] complications 03/18/2019 R94.31 Abnormal electrocardiogram [ECG] [EKG] Zafar Mikeno, DO FAC 03/04/2019 E11.9 Type 2 diabetes mellitus without Mitali Shea PA complications 03/04/2019 E78.5 Hyperlipidemia, unspecified Mitali Shea, PA 03/04/2019 I10 Essential (primary) hypertension Mitali Shea, PA 03/04/2019 E66.8 Other obesity Mitali Shea PA 03/04/2019 Z72.0 Tobacco use Mitali Shea PA 01/28/2019 Z01.810 Encounter for preprocedural Zafar Canela, DO [facility] cardiovascular examination 01/28/2019 Z72.0 Tobacco use Zafar Canela, DO [facility] 01/28/2019 E11.9 Type 2 diabetes mellitus without Zafar SDada Mikeno, DO [facility] complications 01/28/2019 E78.5 Hyperlipidemia, unspecified Zafar SDada Mikeno, DO FACC 01/28/2019 I10 Essential (primary) hypertension Zafar Mikeno, DO FAC 01/28/2019 E66.8 Other obesity Zafar SDada Mikeno, DO FAC 01/28/2019 R94.31 Abnormal electrocardiogram [ECG] [EKG] Zafar Mikeno, DO FAC 01/28/2019 Z68.42 Body mass index (BMI) 45.0-49.9, adult Zafar Canela, DO FAC 11/28/2018 Z00.01 Encounter for general adult medical [place] examination with abnorma 11/28/2018 Z12.31 Encounter for screening mammogram for [facility] malignant neoplasm of 11/28/2018 J01.90 Acute sinusitis, unspecified [facility] 11/28/2018 E11.9 Type 2 diabetes mellitus without [facility] complications Plan of Treatment Future Appointment(s):06/03/2019 8:00 am - [facility] [place] at [facility] - Zafar Canela DO FACCZ01.810 Encounter for preprocedural cardiovascular examinationComments:Stop taking aspirinYou should remain on a statin (atorvastatin) even after weight loss surgery.Follow up:PRNI25.10 Atherosclerotic heart disease of wiyot coronary artery without angina pgxdpticW85.69 Type 2 diabetes mellitus with other specified rloahkcoowwsP31.201 Nicotine dependence, unspecified, in rgvtinoijQ05.8 Other [id number] Essential (primary) rocjkicebaejJ91.5 Hyperlipidemia, unspecified Functional Status Functional Condition Comment Date Status Glasses reading Active Complete Dentures Active Mental Status Description No Information Available Referrals Description No Information Available
--- OUTSIDE RECORDS SUMMARY | 2019-07-03 05:45 | XMS REPORT | Continuity of Care Document ---
:1975 External Reference #:[id number] Author Name SHERITA Birmingham (transmitted by agent of provider Martín Gordillo) Address [address] [place] [address] Care Team Providers Name Role Phone Gillian Maier MD - Care Team Information Scouring Pads Supervisor [phone] Endocrinology, Diabetes & Metabolism Sulaiman Otto MD - Family Care Team Information Scouring Pads Supervisor Medicine Mitali Shea PA - Physician Grades 1 Through 6 Teacher Care Team Information Scouring Pads Supervisor Problems Active Problems Provider Date Arthrodesis by [...] Medications SIG Qnty Indications Ordering Date Provider Atorvastatin Calcium take one tablet 30tabs Sulaiman 06/03/2019 by mouth at MD Fam 80mg Tablets bedtime Freestyle Lite Test Use Daily And as 50units Sulaiman 03/21/2019 Needed For MD Fam Strip Glucose Testing Chantix Continuing Take One Tablet 56tabs Sulaiman 11/07/2018 Month Govind By Mouth Twice A MD Fam 1mg Tablets Day Unilet Comfortouch Use Daily & as 100units Sulaiman 10/17/2018 Lancet Needed For MD Fam Glucose Testing Levothyroxine Sodium Take One Tablet 30tabs Sulaiman 09/10/2018 By Mouth Every MD Fam 125mcg Tablets Day Trulicity Use Once Weekly 2units E11.69 Sulaiman 06/21/2018 1.5mg/0.5ML as Directed MD Fam Solution Pen-Inject Bupropion HCL ER (XL) Take One Tablet 30tabs F43.21 Sulaiman 09/24/2012 By Mouth Every MD Fam 150mg Tablets ER 24HR Day Fish Oil Ultra 4 tabs by mouth Sulaiman 04/26/2012 1000mg every day MD Fam Capsules Lisinopril Take One Tablet 30tabs 2.5mg By Mouth Every MD Fam Tablets Day Glipizide XL one po bid 60tabs 10mg MD Fam Tablets ER 24HR Escitalopram Oxalate Take One Tablet 30tabs By Mouth Every MD Fam 20mg Tablets Day Famotidine Take One Tablet 30tabs 40mg Tablets By Mouth Every MD Fam Day Loratadine Take One Tablet 30tabs 10mg Tablets By Mouth Every MD Fam Day Metformin HCL ER Take Two Tablets 120tabs Sulaiman 500mg By Mouth Every MD Fam Tablets ER 24HR Morning And 2 AT Night Venlafaxine HCL ER Take One Capsule 30caps Sulaiman By Mouth Every MD Fam 37.5mg Caps ER 24HR Day Pioglitazone HCL Take One Tablet 30tabs Sulaiman 45mg By Mouth Every MD Fam Tablets Day Medications Administered in Office Medication SIG Qnty Indications Ordering Provider Date Inj, Regadenoson, 0.1 MG Zafar Canela, DO [facility] 04/10/2019 Injection Technetium TC 99M Zafar Canela, DO [facility] 04/10/2019 Tetrofosmin, Per Unit Dose Up To 40 Millicuries Injection Technetium TC 99M Zafar Canela, DO [facility] 04/10/2019 Tetrofosmin, Per Unit Dose Up To 40 Millicuries Injection Immunizations CPT Code Status Date Vaccine Lot # [id number] Given 03/04/2016 Tdap - Tetanus/Diptheria/Acellular Pertussis 42694 Given 05/21/2014 Influenza Virus 3Yrs & Over 83915 Refused 06/13/2018 Influenza Virus Vaccine, Quadrivalent, Split, Im Use 6-35mo [id number] Refused 06/05/2017 Influenza Virus Vaccine, Quadrivalent, Split, Im Use 6-35mo 59467 Refused 06/06/2016 Influenza Virus Vaccine, Quadrivalent, Split, Im Use 6-35mo Vital Signs Date Vital Result Comment 06/03/2019 7:50am Weight 320.19 lb BP Systolic Sitting 128 mmHg BP Diastolic Sitting 70 mmHg 05/06/2019 1:37pm Height 67 inches 5'7" Weight 317.00 lb with shoes Heart Rate 70 /min BP Systolic Sitting 130 mmHg Lue BP Diastolic Sitting 60 mmHg Lue BP Systolic Standing 126 mmHg Lue BP Diastolic Standing 70 mmHg Lue BMI (Body Mass Index) 49.6 kg/m2 Ejection Fraction NONE Results Test Date Facility Test Result H/L Range Note Inr/Protime 04/26/2019 [facility] Inr 1.01 Normal 0.82-1.[address] [place] [address] [phone] Laboratory test 04/26/2019 [facility] Partial 40.5 seconds High 26.0-38.[address] [place] [address] PTT [phone] CBC Auto Diff 04/26/2019 [facility] White Blood 8.5 10^3/uL Normal 3.5-10.8 [address] [place] [address] [phone] Red Blood Count 4.43 10^6/uL Normal 3.70-4.87 [...] Blood Cells % 0.0 Basic Metabolic 04/26/2019 [facility] Sodium 137 mmol/L Normal 135-145 Panel [address] [place] [address] [phone] Potassium 4.5 mmol/L Normal 3.5-5.0 Chloride 102 mmol/L Normal 101-111 Co2 Carbon Dioxide 26 mmol/L Normal 22-32 Anion Gap 9 mmol/L Normal 2-11 Glucose 107 mg/dL High 70-100 Blood Urea Nitrogen 16 mg/dL Normal 6-24 Creatinine 0.64 mg/dL Normal 0.51-0.95 BUN/Creatinine Ratio 25.0 High 8-20 Calcium 9.9 mg/dL Normal 8.6-10.3 Egfr Non- 100.3 >60 Egfr 121.4 >60 2 Cath Panel 04/19/2019 [facility] Partial Thrombo Time PTT < pending> [address] [place] [address] [phone] 1 Standard intensity warfarin therapeutic range: 2.0-3.0 [...] (or dialysis) Procedures Date Code Description Status 04/29/2019 53228 Left Heart Cath. Incl S/I Coronaries, Angio S/I V Gram Completed If Done 04/10/2019 86505 Stress Test Completed 04/10/2019 64908 Myocardial Perfusion Imaging Tomographic (Spect) Completed Multiple Studies 03/18/2019 54793 Treadmill Interp/Report Only Completed 03/18/2019 82342 Stress Test Supervsn W/Out I/R Completed 01/28/2019 99794 EKG Tracing & Interpretation Completed 12/31/2018 [id number] Mammogram Completed 12/21/2017 [id number] Mammogram Completed 03/08/2016 [id number] Diabetic Retinal Eye Exam Completed Medical Devices Description No Information Available Encounters Type Date Location Provider Dx Diagnosis Office Visit 05/06/2019 [facility] Zafar Gordon Z01.810 Encounter for 2:00p Of DO ARPIT Morales preprocedural cardiovascular examination I25.10 Athscl heart disease of [place] coronary artery w/o ang pctrs E11.69 Type 2 diabetes mellitus with other specified complication F17.201 Nicotine dependence, unspecified, in remission E66.8 Other obesity I10 Essential (primary) hypertension E78.5 Hyperlipidemia, unspecified Office Visit 04/18/2019 [place] Zafar BairdDada R94.39 Abnormal result of 4:40p Cardiology Of DO [place] other cardiovascular [facility] function study E11.9 Type 2 diabetes mellitus without complications Z72.0 Tobacco use E66.8 Other obesity Z01.810 Encounter for preprocedural cardiovascular examination I10 Essential (primary) hypertension E78.5 Hyperlipidemia, unspecified Office Visit 03/04/2019 8:00a [facility] [employer] SHERITA Birmingham E11.9 Type 2 diabetes Care mellitus without complications E78.5 Hyperlipidemia, unspecified I10 Essential (primary) hypertension E66.8 Other obesity Z72.0 Tobacco use Office Visit 01/28/2019 [place] Zafar SDada Z01.810 Encounter for 1:00p Cardiology Of [facility] [place] preprocedural [facility] cardiovascular examination Z72.0 Tobacco use E11.9 Type 2 diabetes mellitus without complications E78.5 Hyperlipidemia, unspecified I10 Essential (primary) hypertension E66.8 Other obesity R94.31 Abnormal electrocardiogram [ECG] [EKG] Z68.42 Body mass index (BMI) 45.0-49.9, adult Assessments Date Code Description Provider 06/03/2019 E11.69 Type 2 diabetes mellitus with other SHERITA Birmingham specified complication 06/03/2019 I10 Essential (primary) hypertension SHERITA Birmingham 06/03/2019 E78.5 Hyperlipidemia, unspecified SHERITA Birmingham 06/03/2019 E03.9 Hypothyroidism, unspecified SHERITA Birmingham 06/03/2019 G47.00 Insomnia, unspecified SHERITA Birmingham 05/06/2019 Z01.810 Encounter for preprocedural Zafar Canela DO [facility] cardiovascular examination 05/06/2019 I25.10 Atherosclerotic heart disease of Zafar Canela, DO [facility] [place] coronary artery without angina pectoris 05/06/2019 E11.69 Type 2 diabetes mellitus with other Zafar Canela DO [facility] specified complication 05/06/2019 F17.201 Nicotine dependence, unspecified, in Zafar Canela DO FAC remission 05/06/2019 E66.8 Other obesity Zafar Canela DO FAC 05/06/2019 I10 Essential (primary) hypertension Zafar Canela, DO FAC 05/06/2019 E78.5 Hyperlipidemia, unspecified Zafar S. Canela, DO FACC 04/29/2019 I25.6 Silent myocardial ischemia Asuncion Zarate MD, [facility], [facility] 04/19/2019 R94.39 Abnormal result of other He Martinez M.D. cardiovascular function study 04/18/2019 R94.39 Abnormal result of other Zafar S. Canela, DO [facility] cardiovascular function study 04/18/2019 E11.9 Type 2 diabetes mellitus without Zafar S. Canela, DO FAC complications 04/18/2019 Z72.0 Tobacco use Zafar S. Canela, DO FACC 04/18/2019 E66.8 Other obesity Zafar S. Canela, DO FACC 04/18/2019 Z01.810 Encounter for preprocedural Zafar S. Canela, DO [facility] cardiovascular examination 04/18/2019 I10 Essential (primary) hypertension Zafar S. Canela, DO FAC 04/18/2019 E78.5 Hyperlipidemia, unspecified Zafar S. Canela, DO FAC 04/10/2019 Z01.810 Encounter for preprocedural Zafar S. Canela, DO [facility] cardiovascular examination 04/10/2019 E11.9 Type 2 diabetes mellitus without Zafar S. Canela, DO [facility] complications 03/18/2019 R94.31 Abnormal electrocardiogram [ECG] [EKG] Zafar S. Canela, DO FACC 03/04/2019 E11.9 Type 2 diabetes mellitus without Mitali Shea, PA complications 03/04/2019 E78.5 Hyperlipidemia, unspecified Mitali Shea, PA 03/04/2019 I10 Essential (primary) hypertension Mitali Shea, PA 03/04/2019 E66.8 Other obesity Mitali Shea, PA 03/04/2019 Z72.0 Tobacco use Mitali Shea, PA 01/28/2019 Z01.810 Encounter for preprocedural Zafar S. Canela, DO [facility] cardiovascular examination 01/28/2019 Z72.0 Tobacco use Zafar S. Caenla, DO FAC 01/28/2019 E11.9 Type 2 diabetes mellitus without Zafar S. Canela, DO [facility] complications 01/28/2019 E78.5 Hyperlipidemia, unspecified Zafar S. Canela, DO FACC 01/28/2019 I10 Essential (primary) hypertension Zafar Canela, DO [facility] 01/28/2019 E66.8 Other obesity Zafar Canela DO [facility] 01/28/2019 R94.31 Abnormal electrocardiogram [ECG] [EKG] Zafar Canela, DO [facility] 01/28/2019 Z68.42 Body mass index (BMI) 45.0-49.9, adult Zafar Canela, DO [facility] Plan of Treatment Future Appointment(s):09/02/2019 8:00 am - SHERITA Birmingham at [facility] - Mitali Shea, PAE11.69 Type 2 diabetes mellitus with other specified complicationNew Labs:Basic Metabolic Panel, Ordered: 06/03/19Hemoglobin A1c ( Glyco HGB), Ordered: 06/03/19Lipid Profile (Trig/Chol/HDL), Ordered: Liver Function Panel, Ordered: 06/03/19I10 Essential (primary) gkykqkoveaurE38.5 Hyperlipidemia, symnfwoeddrZ33.9 Hypothyroidism, uqjtszymeyxU44.00 Insomnia, unspecifiedAllNew Medication:Atorvastatin Calcium 80 mg - take one tablet by mouth at bedtime Functional Status Functional Condition Comment Date Status Glasses reading Active Complete Dentures Active Mental Status Description No Information Available Referrals Description No Information Available
[2019-07-03] MEDS ORDERED: Lactated Ringers 1000 ML Bag* 1,000 ML IV SCH (06:00)
[2019-07-03] MEDS ORDERED: ceFAZolin 2 GM in NS PREMIX(*) 2 GM/100 ML BAG IVPB ONE (06:36)
[2019-07-03] MEDS ORDERED: Buffered Lidocaine 1% SYRIN* 1 ML/SYRINGE INTRADERM ONE (06:36)
[2019-07-03] MEDS ORDERED: Heparin VIAL(*) 5000 UNITS/ML VIAL (FIVE THOUSAND) ONE (06:36)
[2019-07-03] MEDS ORDERED: ceFAZolin 1 GM ADVAN(*) 1 GM ADDV.VIAL IVPB ONE ×2 (06:36→06:37)
[2019-07-03] MEDS ORDERED: Bupivacaine 0.25% EPI 200,000* 30 ML SDV ONE (07:14)
[2019-07-03] MEDS ORDERED: Dexamethasone IV* 4 MG/ML 1 ML (4 MG) ONE (07:16)
[2019-07-03] MEDS ORDERED: Ondansetron INJ* 2 MG/ML VIAL ONE (07:16)
[2019-07-03] MEDS ORDERED: Phenylephrine 10 MG/ML VIAL* 1 ML VIAL ONE (07:16)
[2019-07-03] MEDS ORDERED: Lidocaine 2% PF * 5 ML VIAL ONE (07:16)
[2019-07-03] MEDS ORDERED: Ketorolac INJ* 30 MG/ML 1 ML VIAL ONE (07:16)
[2019-07-03] MEDS ORDERED: Propofol* 10 MG/ML 20 ML BTL ONE (07:16)
[2019-07-03] MEDS ORDERED: Midazolam* 1 MG/ML 5 ML VIAL (5 MG) ONE (07:17)
[2019-07-03] MEDS ORDERED: fentaNYL* 50 MCG/ML 5 ML VIAL (250 MCG VIAL) ONE (07:17)
[2019-07-03] MEDS ORDERED: Rocuronium* 10 MG/ML VIAL ONE (07:17)
[2019-07-03] MEDS ORDERED: KETAMINE HCL* 50 MG/ML 10 ML VIAL ONE (07:17)
[2019-07-03] MEDS ORDERED: Famotidine IV* 10 MG/ML 2 ML (20 mg) ONE (07:29)
[2019-07-03] MEDS ORDERED: fentaNYL* 50 MCG/ML 2 ML VIAL (100 MCG VIAL) IV PRN (08:36)
[2019-07-03] MEDS ORDERED: Naloxone* 0.4 MG/ML 1 ML VIAL IV PRN (08:36)
[2019-07-03] MEDS ORDERED: Ondansetron INJ* 2 MG/ML VIAL IV PRN (08:36)
[2019-07-03] MEDS ORDERED: Sugammadex * 500 MG/5 ML VIAL IV PUSH ONE (08:50)
--- NOTE | 2019-07-03 09:10 | OP ---
Operative Report - Blank - Operative Report Date of Operation: 07/03/19 Note: Pre-OP Diagnoses: clinically severe obesity Post-op Diagnosis: same Procedure: Diagnostoc laparoscopy Surgeon: Cristofer Leet: Shy Anethesia: Grant EBL: minimal IVF: crystalloid Specimen: none Drains: none Complications: enlarged liver without lesion; surgery aborted
--- NOTE | 2019-07-03 10:01 | DS ---
DATE OF ADMISSION: 07/03/2019. DATE OF DISCHARGE: 07/03/2019. HOSPITAL COURSE: Ms. Morocho is a 43-year-old female worked up as an outpatient with a diagnosis of clinically severe obesity. She went to the OR on 07/03/2019 for planned laparoscopic sleeve gastrectomy. This was aborted due to significant hepatomegaly. The patient was transferred to the PACU and was for planned discharge home in stable condition for follow-up in our office. [id number]/[facility] #: [id number] ALENA
[2019-07-03 10:43] VITALS: BP 113/69
--- NOTE | 2019-07-03 11:16 | OP ---
CC: [facility]; Primary Care Doctor * DATE OF OPERATION: 07/03/19 - ROOM #[id number] DATE OF : 71 SURGEON: Zafar Cleveland MD MOTO MIX OPERATOR: Dilcia Begum NP ANESTHESIOLOGIST: Dr. Hendrickson. ANESTHESIA: General. PRE-OP DIAGNOSIS: Clinically severe obesity. POST-OP DIAGNOSIS: Clinically severe obesity. OPERATIVE PROCEDURE: Diagnostic laparoscopy. ESTIMATED BLOOD LOSS: Minimal. FLUIDS: Minimal crystalloid fluid given. SPECIMENS: None. COMPLICATIONS: Large liver without lesions, inability to safely perform stomach surgery. DESCRIPTION OF PROCEDURE: The patient was identified in the preoperative area. She was marked and consented. Discussed the case with her again. In retrospect, the patient had unchanged weight from 06/21/19 to today at 312 pounds. She was taken to the operating room and placed on the operating room table in supine position. Preoperative antibiotics were given. Sequential devices were placed on bilateral lower extremities and general anesthesia was induced. The patient's abdomen was prepped and draped in the standard surgical fashion and a time-out was performed. Folds of the umbilicus were elevated anteriorly and a Veress needle insufflated into the abdominal cavity which was then allowed to insufflate to a pressure of 15 mmHg. The patient tolerated the insufflation well. Mid way between xiphoid and umbilicus, she is left midline. A 12 mm optical trocar was inserted. The laparoscope was inserted through this. There was no evidence of injury from the trocar insertion or from the Veress needle. Review of the abdomen showed an enlarged liver with an obscured stomach. There was a dilated gallbladder. We then placed additional trocars in the following position. Two 5 mm in the left upper quadrant and a 12 mm in the right upper quadrant. Table was placed in a reverse Trendelenburg. A Moise retractor was inserted through a subxiphoid incision. We retracted the liver anteriorly and somewhat towards the right but we could not see the gastroesophageal fat pad and the liver was quite large obscuring even the spleen that extended towards the left side. With the LigaSure device we took portions of attachments to the falciform to allow for more mobility. I could not really appreciate the triangular ligament on the left and this was not addressed; however, the liver extended beyond this because we could not fold it. We could fold the left lateral lobe over to some extent, but it was still somewhat bulky and we could not at all appreciate the proximal stomach. Review of the abdomen showed no free fluid. No abnormal bowel. The stomach appeared normal contour. The gallbladder as mentioned was quite dilated, but not acutely infected, but did show some adhesions to the omentum. At roughly 30 minutes of attempt to gain the best view to successfully perform the procedure, we abandoned it. We allowed the abdomen to collapse. Trocar was removed under direct vision and all 5 skin incisions were reapproximated with 4-0 Monocryl subcuticular suture. Steri-Strips and sterile dressing were applied. The patient tolerated the procedure well, was awoken up and transferred to the PACU in stable condition with planned follow up in our office. [id number]/[facility] #: [id number] ALENA
[2019-07-04] MEDS ORDERED: Famotidine IV* 10 MG/ML 2 ML (20 mg) IV ONE (06:00)
[2019-07-11] MEDS ORDERED: Ondansetron INJ* 2 MG/ML VIAL IV PRN (09:01)
[2019-07-11] MEDS ORDERED: Naloxone* 0.4 MG/ML 1 ML VIAL IV PRN (09:01)
[2019-07-11] MEDS ORDERED: fentaNYL* 50 MCG/ML 2 ML VIAL (100 MCG VIAL) IV PRN (09:06)
== END 2019-07-03 09:14 | disposition home or self-care (01) ==
LOC: UNDOADMIN 05:41 → OR 05:41 → AA 05:41 → OR 09:14 → EDSTATUS 13:30
PROVIDERS: ATTEND Surgery
DX: E66.01 Morbid (severe) obesity due to excess calories (principal); Z53.09 Procedure and treatment not carried out because of other contraindication; R16.0 Hepatomegaly, not elsewhere classified; Z68.42 Body mass index [BMI] 45.0-49.9, adult; E11.65 Type 2 diabetes mellitus with hyperglycemia; Z79.84 Long term (current) use of oral hypoglycemic drugs; Z87.891 Personal history of nicotine dependence; G47.33 Obstructive sleep apnea (adult) (pediatric); I10 Essential (primary) hypertension; I25.10 Atherosclerotic heart disease of native coronary artery without angina pectoris; F41.8 Other specified anxiety disorders; M19.90 Unspecified osteoarthritis, unspecified site; E03.9 Hypothyroidism, unspecified; E78.5 Hyperlipidemia, unspecified; K21.9 Gastro-esophageal reflux disease without esophagitis
CPT/HCPCS: 49320; J0690; J1100; J1644; J1885; J2250; J2405; J2704; J3010

== ENCOUNTER 2019-07-07 16:41 | Emergency (ER) | payer OTHER ==
[2019-07-07 17:41] VITALS: BP 127/75
--- NOTE | 2019-07-07 18:38 | UC ---
Skin Complaint HPI - HPI Summary HPI Summary: C/O rash under the breasts since yesterday. Worse today, has noticed more of a rash over the abdomen this evening. Did receive antibiotics for attempted sleeve gastroplasty - History of Current Complaint Chief Complaint: UCRash Time Seen by Provider: 07/07/19 18:25 Stated Complaint: RASH Hx Obtained From: Patient Hx Last Menstrual Period: 01/19/19 Onset/Duration: Sudden Onset, Lasting Days - 2, Still Present, Worse Since - today Timing: Constant Onset Severity: Mild Current Severity: Moderate Pain Intensity: 0 Location: Discrete - under the breasts and over the abdomen. One area upper abdomen with a pattern like tape. Character: Pruritus, Redness Aggravating Factor(s): Nothing Alleviating Factor(s): Nothing Associated Signs & Symptoms: Positive: Rash. Negative: Difficulty Breathing, Fever, Chills, Cough, Wheezing, Chest Pain, Hoarseness - Allergy/Home Medications Allergies/Adverse Reactions: Allergies Allergy/AdvReac Type Severity Reaction Status Date / Time seasonal Allergy Coughing Uncoded 07/07/19 17:41 PMH/Surg Hx/FS Hx/Imm Hx Endocrine History: Diabetes, Hypothyroidism - Surgical History Surgical History: Yes Surgery Procedure, Year, and Place: TONSILS AGE 3-CORTLND. 2 C-SECTIONS- [facility]. TUBAL [id number] - Family History Known Family History: Positive: Cardiac Disease - son with congenital heart disease., Diabetes - mother, Other - positive [facility] for URI - Social History Occupation: Unemployed Lives: With Family Alcohol Use: Rare Alcohol Amount: 1-2 per year Substance Use Type: None Smoking Status (MU): Former Smoker Type: Cigarettes Amount Used/How Often: 3-4 CIG PER DAY-QUITTING Length of Time of Smoking/Using Tobacco: 27 YRS Have You Smoked in the Last Year: Yes When Did the Patient Quit Smoking/Using Tobacco: 2 months Household Exposure Type: Cigarettes - Immunization History Most Recent Influenza Vaccination: DID NOT RECEIVE Most Recent Tetanus Shot: UNSURE Most Recent Pneumonia Vaccination: NEVER Vaccination Up to Date: Yes Review of Systems All Other Systems Reviewed And Are Negative: Yes Constitutional: Positive: Fatigue - after benedryl Skin: Positive: Rash Physical Exam Triage Information Reviewed: Yes Appearance: Well-Appearing, No Pain Distress, Obese Vital Signs: Initial Vital Signs Temp 97.7 F 07/07/19 17:34 Pulse 85 07/07/19 17:34 Resp 17 07/07/19 17:34 BP 127/75 07/07/19 17:34 Pulse Ox 99 07/07/19 17:34 Vital Signs Reviewed: Yes Eyes: Positive: Conjunctiva Clear ENT: Positive: Pharynx normal, TMs normal Neck exam: Normal Respiratory Exam: Normal Cardiovascular Exam: Normal Musculoskeletal Exam: Normal Neurological Exam: Normal Psychological Exam: Normal Skin: Positive: Rashes - Confluent yeast rash under the breasts. Bra left on. Angular rash in the upper abdomen Course/Dx - Differential Diagnoses - Skin Complaint Differential Diagnoses: Abscess, Cellulitis, Contact Dermatitis, Drug Rash, Local Allergic Reaction - Diagnoses Provider Diagnosis: Candidal dermatitis, Contact dermatitis due to adhesives Discharge ED - Sign-Out/Discharge Documenting (check all that apply): Patient Departure All imaging exams completed and their final reports reviewed: No Studies - Discharge Plan Condition: Stable Disposition: HOME Prescriptions: Betamethasone Dip 0.05% ON(NF) [Betamethasone Dipr 0.05% OINT(NF)] 1 applic .SEE ORDER BID #50 gm Ketoconazole 2 % CREAM (NF) [Nizoral 2% CREAM (NF)] 1 applic TOPICAL BID #30 gm Patient Education Materials: Skin Yeast Infection (ED), Contact Dermatitis (ED) Referrals: Mitali Shea PA [Primary Care Provider] - - Billing Disposition and Condition Condition: STABLE Disposition: Home
== END 2019-07-07 18:51 | disposition home or self-care (01) ==
LOC: UCCORT 16:41
DX: L25.8 Unspecified contact dermatitis due to other agents (principal); B37.89 Other sites of candidiasis; E11.9 Type 2 diabetes mellitus without complications; R53.83 Other fatigue; Z83.3 Family history of diabetes mellitus; Z87.891 Personal history of nicotine dependence; Z91.09 Other allergy status, other than to drugs and biological substances
CPT/HCPCS: 99212; G0463

== ENCOUNTER 2022-02-09 07:30 | Inpatient (IN) ==
[~2022-02-09 07:30] MED LIST changes: +Buffered Lidocaine 1% SYRIN 1 ml INTRADERM ONE; -Buffered Lidocaine 1% SYRIN* 1 ML/SYRINGE INTRADERM ONE; +HYDROcodone/ACETAMIN 5/325 mg TAB PO PRN; +Lactated Ringers 1000 ml BAG 1,000 ML IV SCH; +Metoclopramide 5 MG/ML VIAL (10 mg) IV PRN; +Naloxone 0.4 mg VIAL 0.4 mg/ml 1 ml VIAL IV PRN; +Ondansetron 4 mg VIAL 2 MG/ML 2 ml VIAL IV PRN
[2022-02-09] MEDS ORDERED: Scopolamine 1 mg/72hr PATCH ONE (10:30)
[2022-02-09] MEDS ORDERED: ceFAZolin 1 GM in Dextrose 1 GM/50 ML BAG ONE (10:30)
[2022-02-09] MEDS ORDERED: Heparin 5000 UNITS/ML 1 mL VIAL ONE (10:30)
[2022-02-09] MEDS ORDERED: ceFAZolin 2 GM in NS PREMIX 2 GM/100 ML BAG IVPB ONE (10:31)
[2022-02-09] MEDS ORDERED: Ondansetron 4 mg VIAL 2 MG/ML 2 ml VIAL ONE (13:41)
[2022-02-09] MEDS ORDERED: Propofol 10 MG/ML 20 ML BTL ONE (13:41)
[2022-02-09] MEDS ORDERED: Lidocaine 2% PF 5 ML VIAL ONE (13:41)
[2022-02-09] MEDS ORDERED: Dexamethasone IV 4 MG/ML VIAL 1 ml VIAL ONE (13:41)
[2022-02-09] MEDS ORDERED: Rocuronium 50 mg VIAL 10 mg/ml 5 ml VIAL (50 mg) ONE ×3 (13:42→17:22)
[2022-02-09] MEDS ORDERED: fentaNYL 100 mcg/2 ml 50 MCG/ML VIAL ONE ×2 (13:46→20:35)
[2022-02-09] MEDS ORDERED: HYDROmorphone 0.5 MG/0.5 ML SYRINGE ONE ×4 (15:06→17:33)
[2022-02-09] MEDS ORDERED: hydrALAZINE 20 mg/ml 1 ML Vial IV ONE (15:51)
[2022-02-09] MEDS ORDERED: Sevoflurane BOTTLE ONE (17:22)
[2022-02-09] MEDS ORDERED: Metoprolol Tartrate 5 mg VIAL 5 ml VIAL (1 mg/ml) ONE (17:22)
[2022-02-09] MEDS ORDERED: Labetalol IV 5 MG/ML 20 ml VIAL ONE (18:09)
[2022-02-09] MEDS ORDERED: ceFAZolin VIAL VIAL ONE (18:21)
[2022-02-09] MEDS ORDERED: HYDROcodone/ACET. 7.5/325 LIQ 15 ML UDC PO PRN (19:34)
[2022-02-09] MEDS ORDERED: Ondansetron 4 mg VIAL 2 MG/ML 2 ml VIAL IV PRN (19:34)
[2022-02-09] MEDS ORDERED: Dextrose 50% Syringe 50 ml 25 GM/50 ML SYRINGE IV PUSH PRN (19:37)
[2022-02-09] MEDS: fentaNYL 100 mcg/2 ml 50 MCG/ML VIAL IV PRN ×3 (20:41→21:13)
[2022-02-09] MEDS ORDERED: Lactated Ringers 500 ml BAG 500 ML IV ONE (21:32)
[2022-02-09] MEDS ORDERED: Metoclopramide 5 MG/ML VIAL (10 mg) ONE (22:06)
[2022-02-09] MEDS: Lactated Ringers 1000 ml BAG 1,000 ML IV SCH (23:17)
[2022-02-10] MEDS: Heparin 5000 UNITS/ML 1 mL VIAL SUBCUT SCH ×3 (05:44→21:22)
[2022-02-10] MEDS: HYDROmorphone 0.5 MG/0.5 ML SYRINGE IV SLOW PU PRN (05:44)
[2022-02-10] MEDS: Lactated Ringers 1000 ml BAG 1,000 ML IV SCH ×2 (07:09→14:54)
[2022-02-10] MEDS: D5W 1/2 NS KCl 20 meq 1000 ml 1,000 ML IV SCH (21:22)
[2022-02-11] MEDS: HYDROmorphone 0.5 MG/0.5 ML SYRINGE IV SLOW PU PRN (00:39)
[2022-02-11] MEDS: D5W 1/2 NS KCl 20 meq 1000 ml 1,000 ML IV SCH (05:20)
[2022-02-11] MEDS: Heparin 5000 UNITS/ML 1 mL VIAL SUBCUT SCH (05:20)
[2022-02-11 11:27] VITALS: BP 127/70
== END 2022-02-11 12:44 | disposition home or self-care (01) | DRG 403 ==
LOC: AA 09:47 → SSU 20:05
PROVIDERS: ADMIT Surgery; ATTEND Surgery

== ENCOUNTER 2022-02-18 13:06 | Inpatient (IN) ==
[2022-02-18 13:38] LABS: Urine Appearance Cloudy; Urine Bilirubin Negative (Negative); Urine Blood 3+ (Negative); Urine Color Straw; Urine Glucose 3+(>=500 mg/dL) (Negative); Urine Ketones 2+ (Negative); Urine Nitrite Negative (Negative); Urine Protein 1+(30 mg/dL) (Negative); Urine Urobilinogen Negative (Negative)
[2022-02-18 13:44] LABS: Urine Bacteria Absent (Absent); Urine Red Blood Cell 3+(>10/hpf) (Absent); Urine Squamous Epithelial Cell Present (Absent); Urine White Blood Cell Trace(0-5/hpf) (Absent)
[2022-02-18 13:53] LABS: PO2 Arterial 116 mmHg (80-100)
[2022-02-18 13:58] LABS: PCO2 Arterial <20 mmHg (35-45)
[2022-02-18] MEDS ORDERED: Dextrose 50% Syringe 50 ml 25 GM/50 ML SYRINGE IV PUSH PRN ×2 (13:58→15:05)
[2022-02-18] MEDS ORDERED: Insulin Infusion 100unit/100mL 100 UNIT/100 ML BAG IV ONE (13:58)
[2022-02-18] MEDS ORDERED: Sodium Bicarb 8.4% Vial 50 ML 100 MEQ in D5W 1000 ml BAG 900 ML IV ONE (13:59)
[2022-02-18 14:33] LABS: Hematocrit 47 % (35-47); Hemoglobin 14.9 g/dL (12.0-16.0); Mean Corpuscular HGB Conc 32 g/dL (31-36); Mean Corpuscular Hemoglobin 29 pg (27-31); Mean Corpuscular Volume 90 fL (80-97); Mean Platelet Volume 8.1 fL (7.4-10.4); Platelet Count 398 10^3/uL (150-450); Red Blood Count 5.22 10^6 /uL (3.70-4.87); Red Cell Distribution Width 16 % (10-15); White Blood Count 10.9 10^3/uL (3.5-10.8)
[2022-02-18] MEDS ORDERED: Thiamine 100 MG/ML 2 ml VIAL 100 MG, Folic Acid IV 1 MG, Multiple Vitamin IV ADULT 10 M... IV ONE ×2 (14:45→15:01)
[2022-02-18 14:47] LABS: Sodium 135 mmol/L (135-145)
[2022-02-18 14:48] LABS: Albumin 4.4 g/dL (3.2-5.2); Calcium 8.8 mg/dL (8.6-10.3); Chloride 107 mmol/L (101-111); Magnesium 2.2 mg/dL (1.9-2.7); Potassium 4.2 mmol/L (3.5-5.0)
[2022-02-18 14:54] LABS: ALT 95 U/L (7-52); AST 56 U/L (13-39); Albumin/Globulin Ratio 1.3 (1-3); Alkaline Phosphatase 547 U/L (35-149); Blood Urea Nitrogen 11 mg/dL (6-24); Creatine Kinase 70 U/L (10-223); Globulin 3.4 g/dL (2-4); Glucose 156 mg/dL (70-100); Lipase 325 U/L (11.0-82.0); Phosphorus 1.7 mg/dL (2.5-5.0); Total Protein 7.8 g/dL (6.4-8.9)
[2022-02-18] MEDS ORDERED: Sodium Bicarb 8.4% Vial 50 ML 100 MEQ in D5W 1000 ml BAG 900 ML IV SCH (15:00)
[2022-02-18 15:05] LABS: Anion Gap 21 mmol/L (2-11); CO2 Carbon Dioxide 7 mmol/L (22-32)
[2022-02-18] MEDS ORDERED: Ondansetron 4 mg VIAL 2 MG/ML 2 ml VIAL IV PRN (15:05)
[2022-02-18] MEDS ORDERED: Magnesium Sulfate 2 gm BAG 2 GM/50 ML BAG IVPB ONE (15:17)
[2022-02-18 15:29] LABS: RBC Morphology Normal (Normal)
[2022-02-18] MEDS ORDERED: Potassium Phosphate IV 15 MMOLE in NS 0.9% 250 ml 250 ML IVPB ONE (15:32)
[2022-02-18] MEDS ORDERED: Sodium Phosphate IV 15 MMOLE in NS 0.9% 250 ml 250 ML IV ONE (15:34)
[2022-02-18 15:36] LABS: HCG Pregnancy 2.47 mIU/mL
[2022-02-18 15:43] LABS: TSH Ultra Thyroid Stim Horm 1.09 mcIU/mL (0.34-5.60)
[2022-02-18] MEDS ORDERED: D10W 1000 ml BAG 1,000 ML IV SCH (16:00)
[2022-02-18] MEDS ORDERED: D5W 1/2 NS 1000 ml BAG 1,000 ML IV SCH (16:00)
[2022-02-18] MEDS ORDERED: Insulin Infusion 100unit/100mL 100 UNIT/100 ML BAG IV SCH (16:00)
[2022-02-18 17:19] LABS: Acetaminophen < 15 mcg/mL; Salicylate < 2.50 mg/dL (<30)
[2022-02-18] MEDS: Lactated Ringers 1000 ml BAG 1,000 ML IV SCH ×2 (17:39→18:39)
[2022-02-18] MEDS ORDERED: Acetaminophen IV 1 GM/100ML 100 ML IV PRN (18:16)
[2022-02-18 19:06] LABS: High Sensitivity Troponin 1 Hr 9 pg/mL (<15)
[2022-02-18 19:32] LABS: Calcium 8.2 mg/dL (8.6-10.3); Phosphorus 1.5 mg/dL (2.5-5.0); Potassium 3.4 mmol/L (3.5-5.0); eGFR CKD-EPI 88.2 (>60)
[2022-02-18] MEDS: D5W 1/2 NS KCl 20 meq 1000 ml 1,000 ML IV SCH (20:20)
[2022-02-18 23:56] LABS: Calcium 7.8 mg/dL (8.6-10.3); Magnesium 1.9 mg/dL (1.9-2.7); Phosphorus 1.7 mg/dL (2.5-5.0); Potassium 3.2 mmol/L (3.5-5.0); eGFR CKD-EPI 92.2 (>60)
[2022-02-19] MEDS: KCL 20 MEQ/100 ML IVPREMIX 20 MEQ/100 ML BAG IV SCH ×4 (00:30→09:33)
[2022-02-19 04:12] LABS: Magnesium 1.9 mg/dL (1.9-2.7); Phosphorus 1.5 mg/dL (2.5-5.0); Potassium 3.4 mmol/L (3.5-5.0); eGFR CKD-EPI 92.2 (>60)
[2022-02-19] MEDS: D5W 1/2 NS KCl 20 meq 1000 ml 1,000 ML IV SCH (04:51)
[2022-02-19] MEDS: Levothyroxine 100 MCG/5 ML VIAL IV SCH (06:29)
[2022-02-19 06:32] LABS: ABS Eosinophils 0.1 10^3/ul (0-0.6); ABS Lymphocytes 1.3 10^3/ul (1.0-4.8); ABS Monocytes 0.8 10^3/ul (0-0.8); ABS Neutrophils 3.4 10^3/ul (1.5-7.7); Hematocrit 37 % (35-47); Hemoglobin 12.1 g/dL (12.0-16.0); Lymphocyte % 23.2 %; Mean Corpuscular HGB Conc 32 g/dL (31-36); Mean Corpuscular Hemoglobin 29 pg (27-31); Mean Corpuscular Volume 88 fL (80-97); Mean Platelet Volume 7.7 fL (7.4-10.4); Platelet Count 303 10^3/uL (150-450); Red Blood Count 4.22 10^6 /uL (3.70-4.87); Red Cell Distribution Width 16 % (10-15); White Blood Count 5.5 10^3/uL (3.5-10.8)
[2022-02-19 06:52] LABS: HDL Cholesterol 37.1 mg/dL
[2022-02-19] MEDS ORDERED: Potassium Phosphate IV 15 MMOLE in NS 0.9% 250 ml 250 ML IVPB ONE ×2 (07:00→18:43)
[2022-02-19 08:11] LABS: Calcium 8.2 mg/dL (8.6-10.3); Magnesium 1.9 mg/dL (1.9-2.7); Phosphorus 1.2 mg/dL (2.5-5.0); Potassium 3.3 mmol/L (3.5-5.0); eGFR CKD-EPI 99.7 (>60)
[2022-02-19] MEDS: Pantoprazole VIAL 40 MG VIAL IV SCH (09:00)
[2022-02-19] MEDS ORDERED: D5W 1/2 NS 40 Meq KCL 1000 ml 1,000 ML IV SCH (10:00)
[2022-02-19 11:52] LABS: Calcium 8.1 mg/dL (8.6-10.3); Magnesium 1.9 mg/dL (1.9-2.7); Phosphorus 1.4 mg/dL (2.5-5.0); Potassium 3.8 mmol/L (3.5-5.0); eGFR CKD-EPI 104.8 (>60)
[2022-02-19 16:10] LABS: Calcium 8.3 mg/dL (8.6-10.3); Magnesium 1.9 mg/dL (1.9-2.7); Phosphorus 1.2 mg/dL (2.5-5.0); Potassium 3.5 mmol/L (3.5-5.0)
[2022-02-19] MEDS ORDERED: Insulin GLARGINE 100 un/ml 10 ml VIAL SUBCUT ONE (16:25)
[2022-02-19] MEDS ORDERED: Dextrose 50% Syringe 50 ml 25 GM/50 ML SYRINGE IV PUSH PRN (16:33)
[2022-02-20 00:20] LABS: Calcium 8.7 mg/dL (8.6-10.3); Potassium 3.2 mmol/L (3.5-5.0); eGFR CKD-EPI 104.8 (>60)
[2022-02-20 04:28] LABS: ABS Basophils 0.1 10^3/ul (0-0.2); ABS Eosinophils 0.1 10^3/ul (0-0.6); ABS Lymphocytes 2.1 10^3/ul (1.0-4.8); ABS Monocytes 0.6 10^3/ul (0-0.8); ABS Neutrophils 2.5 10^3/ul (1.5-7.7); Eosinophil % 1.1 %; Hematocrit 37 % (35-47); Lymphocyte % 39.7 %; Mean Corpuscular HGB Conc 33 g/dL (31-36); Mean Corpuscular Hemoglobin 29 pg (27-31); Mean Corpuscular Volume 87 fL (80-97); Mean Platelet Volume 7.7 fL (7.4-10.4); Nucleated Red Blood Cells % 0.1; Platelet Count 290 10^3/uL (150-450); Red Cell Distribution Width 16 % (10-15); White Blood Count 5.2 10^3/uL (3.5-10.8)
[2022-02-20 05:17] LABS: Calcium 8.7 mg/dL (8.6-10.3); Magnesium 1.8 mg/dL (1.9-2.7); Phosphorus 1.7 mg/dL (2.5-5.0); Potassium 3.1 mmol/L (3.5-5.0); eGFR CKD-EPI 109.4 (>60)
[2022-02-20] MEDS: Levothyroxine 100 MCG/5 ML VIAL IV SCH (05:38)
[2022-02-20] MEDS ORDERED: Magnesium Sulfate 2 gm BAG 2 GM/50 ML BAG IVPB ONE (06:16)
[2022-02-20] MEDS ORDERED: Potassium Chlor 20 meq TAB.ER PO ONE (06:17)
[2022-02-20] MEDS: Pantoprazole VIAL 40 MG VIAL IV SCH (07:05)
[2022-02-20] MEDS ORDERED: Potassium Phosphate IV 21 MMOLE in NS 0.9% 250 ml 250 ML IVPB ONE (07:15)
[2022-02-20] MEDS ORDERED: Dextrose 50% Syringe 50 ml 25 GM/50 ML SYRINGE IV PUSH ONE (09:00)
[2022-02-20] MEDS ORDERED: Perflutren Lipid Microsphere 3 ML VIAL ONE (09:37)
[2022-02-20 13:50] LABS: Calcium 8.5 mg/dL (8.6-10.3); Potassium 3.4 mmol/L (3.5-5.0); eGFR CKD-EPI 111.1 (>60)
[2022-02-20 21:12] LABS: Calcium 8.4 mg/dL (8.6-10.3); Potassium 2.9 mmol/L (3.5-5.0); eGFR CKD-EPI 111.1 (>60)
[2022-02-20] MEDS ORDERED: Potassium Chlor 20 meq TAB.ER PO SCH (22:00)
[2022-02-21 04:33] LABS: Calcium 8.4 mg/dL (8.6-10.3); Potassium 2.9 mmol/L (3.5-5.0)
[2022-02-21] MEDS ORDERED: Potassium Chlor 20 meq TAB.ER PO SCH (05:00)
[2022-02-21] MEDS ORDERED: Potassium Chlor 20 meq TAB.ER PO ONE (05:22)
[2022-02-21] MEDS: Levothyroxine 100 MCG/5 ML VIAL IV SCH (05:37)
[2022-02-21 05:52] LABS: Magnesium 2.2 mg/dL (1.9-2.7)
[2022-02-21 05:59] LABS: ABS Basophils 0.1 10^3/ul (0-0.2); ABS Eosinophils 0.1 10^3/ul (0-0.6); ABS Lymphocytes 2.4 10^3/ul (1.0-4.8); ABS Monocytes 0.5 10^3/ul (0-0.8); ABS Neutrophils 3.3 10^3/ul (1.5-7.7); Eosinophil % 2.2 %; Hematocrit 36 % (35-47); Hemoglobin 12.2 g/dL (12.0-16.0); Lymphocyte % 37.3 %; Mean Corpuscular HGB Conc 34 g/dL (31-36); Mean Corpuscular Hemoglobin 29 pg (27-31); Mean Corpuscular Volume 87 fL (80-97); Mean Platelet Volume 7.8 fL (7.4-10.4); Platelet Count 283 10^3/uL (150-450); Red Blood Count 4.15 10^6 /uL (3.70-4.87); Red Cell Distribution Width 16 % (10-15); White Blood Count 6.5 10^3/uL (3.5-10.8)
[2022-02-21] MEDS: Pantoprazole VIAL 40 MG VIAL IV SCH (08:33)
[2022-02-21] MEDS: Enoxaparin 40 MG/0.4 ML SYR SUBCUT SCH (08:33)
[2022-02-21] MEDS: Potassium Chlor 20 meq TAB.ER PO SCH (08:33)
[2022-02-21 09:07] LABS: Phosphorus 2.2 mg/dL (2.5-5.0)
[2022-02-21] MEDS: Insulin GLARGINE 100 un/ml 10 ml VIAL SUBCUT SCH (10:59)
[2022-02-21] MEDS ORDERED: Potassium Phosphate IV 15 MMOLE in NS 0.9% 250 ml 250 ML IVPB ONE (12:00)
[2022-02-21] MEDS: Escitalopram SOLN ORALSYR 5 MG/5 ML PO SCH (12:13)
[2022-02-21 15:03] LABS: Calcium 8.5 mg/dL (8.6-10.3); Potassium 3.3 mmol/L (3.5-5.0)
[2022-02-21 15:09] LABS: eGFR CKD-EPI 115.1 (>60)
[2022-02-21] MEDS: KCL 20 MEQ/100 ML IVPREMIX 20 MEQ/100 ML BAG IV SCH ×2 (15:59→18:36)
[2022-02-21] MEDS ORDERED: Potassium Acid Phos 500 mg TAB PO ONE (21:00)
[2022-02-22 04:22] LABS: ABS Eosinophils 0.1 10^3/ul (0-0.6); ABS Lymphocytes 2.2 10^3/ul (1.0-4.8); ABS Monocytes 0.4 10^3/ul (0-0.8); ABS Neutrophils 3.4 10^3/ul (1.5-7.7); Eosinophil % 2.4 %; Hematocrit 34 % (35-47); Hemoglobin 11.3 g/dL (12.0-16.0); Lymphocyte % 35.1 %; Mean Corpuscular HGB Conc 33 g/dL (31-36); Mean Corpuscular Hemoglobin 29 pg (27-31); Mean Corpuscular Volume 87 fL (80-97); Mean Platelet Volume 8.2 fL (7.4-10.4); Nucleated Red Blood Cells % 0.1; Platelet Count 260 10^3/uL (150-450); Red Blood Count 3.92 10^6 /uL (3.70-4.87); Red Cell Distribution Width 16 % (10-15); White Blood Count 6.2 10^3/uL (3.5-10.8)
[2022-02-22 04:59] LABS: Calcium 8.5 mg/dL (8.6-10.3); Magnesium 1.9 mg/dL (1.9-2.7); Phosphorus 3.6 mg/dL (2.5-5.0); Potassium 3.4 mmol/L (3.5-5.0); eGFR CKD-EPI 117.4 (>60)
[2022-02-22] MEDS: Potassium Chlor 20 meq TAB.ER PO SCH (08:04)
[2022-02-22] MEDS ORDERED: Magnesium Sulfate 2 gm BAG 2 GM/50 ML BAG IVPB ONE (08:05)
[2022-02-22] MEDS ORDERED: Potassium Chlor 20 meq TAB.ER PO ONE (08:05)
[2022-02-22] MEDS: Escitalopram SOLN ORALSYR 5 MG/5 ML PO SCH (08:07)
[2022-02-22] MEDS: Enoxaparin 40 MG/0.4 ML SYR SUBCUT SCH (08:09)
[2022-02-22] MEDS: Insulin GLARGINE 100 un/ml 10 ml VIAL SUBCUT SCH (08:10)
[2022-02-22 11:37] VITALS: BP 116/67
== END 2022-02-22 16:30 | disposition home or self-care (01) | DRG 420 ==
LOC: ED 13:06 → EDHOLD 15:02 → ICU 17:49 → SSU 02-21 17:22
PROVIDERS: ADMIT Internal Medicine Critical Care Medicine; ATTEND Internal Medicine Critical Care Medicine

== ENCOUNTER 2022-05-17 15:46 | Inpatient (IN) ==
[2022-05-17] MEDS ORDERED: Ondansetron 4 mg VIAL 2 MG/ML 2 ml VIAL IV PRN (20:31)
[2022-05-17] MEDS ORDERED: Morphine 2 MG/ML SYRINGE IV PRN (20:34)
[2022-05-17] MEDS ORDERED: ceFAZolin 2 GM (*##) 100 ML IVPB SCH (21:00)
[2022-05-17 21:34] LABS: ABS Eosinophils 0.1 10^3/ul (0-0.6); ABS Lymphocytes 1.6 10^3/ul (1.0-4.8); ABS Monocytes 0.5 10^3/ul (0-0.8); ABS Neutrophils 4.2 10^3/ul (1.5-7.7); Hematocrit 34 % (35-47); Hemoglobin 10.5 g/dL (12.0-16.0); Mean Corpuscular HGB Conc 31 g/dL (31-36); Mean Corpuscular Hemoglobin 28 pg (27-31); Mean Corpuscular Volume 88 fL (80-97); Mean Platelet Volume 8.3 fL (7.4-10.4); Nucleated Red Blood Cells % 0.1; Platelet Count 223 10^3/uL (150-450); Red Blood Count 3.81 10^6 /uL (3.70-4.87); Red Cell Distribution Width 17 % (10-15); White Blood Count 6.4 10^3/uL (3.5-10.8)
[2022-05-17] MEDS: Pantoprazole VIAL 40 MG VIAL IV SCH (21:34)
[2022-05-17] MEDS: Lactated Ringers 1000 ml BAG 1,000 ML IV SCH (21:34)
[2022-05-17] MEDS: ceFAZolin 2 GM in NS PREMIX 2 GM/100 ML BAG IVPB SCH (22:11)
[2022-05-17 22:18] LABS: Albumin 2.8 g/dL (3.2-5.2); Albumin/Globulin Ratio 1.3 (1-3); Calcium 8.2 mg/dL (8.6-10.3); Globulin 2.2 g/dL (2-4); Potassium 3.3 mmol/L (3.5-5.0); Total Bilirubin 0.7 mg/dL (0.2-1.0); eGFR CKD-EPI 112.5 (>60)
[2022-05-17] MEDS ORDERED: Dextrose 50% Syringe 50 ml 25 GM/50 ML SYRINGE IV PUSH PRN (23:33)
[2022-05-18] MEDS: KCL 20 MEQ/100 ML IVPREMIX 20 MEQ/100 ML BAG IV SCH ×2 (00:16→02:30)
[2022-05-18] MEDS: Lactated Ringers 1000 ml BAG 1,000 ML IV SCH ×3 (04:43→18:26)
[2022-05-18] MEDS: ceFAZolin 2 GM in NS PREMIX 2 GM/100 ML BAG IVPB SCH ×3 (04:43→16:32)
[2022-05-18] MEDS: Levothyroxine 100 MCG/5 ML VIAL IV SCH (06:05)
[2022-05-18 07:28] LABS: ABS Eosinophils 0.1 10^3/ul (0-0.6); ABS Lymphocytes 1.6 10^3/ul (1.0-4.8); ABS Monocytes 0.4 10^3/ul (0-0.8); ABS Neutrophils 4.4 10^3/ul (1.5-7.7); Eosinophil % 1.3 %; Hematocrit 33 % (35-47); Hemoglobin 10.5 g/dL (12.0-16.0); Lymphocyte % 24.4 %; Mean Corpuscular HGB Conc 32 g/dL (31-36); Mean Corpuscular Hemoglobin 28 pg (27-31); Mean Corpuscular Volume 88 fL (80-97); Mean Platelet Volume 9.1 fL (7.4-10.4); Platelet Count 241 10^3/uL (150-450); Red Blood Count 3.75 10^6 /uL (3.70-4.87); Red Cell Distribution Width 17 % (10-15); White Blood Count 6.5 10^3/uL (3.5-10.8)
[2022-05-18 07:57] LABS: Calcium 8.2 mg/dL (8.6-10.3); Potassium 3.6 mmol/L (3.5-5.0); eGFR CKD-EPI 115.1 (>60)
[2022-05-18] MEDS: Pantoprazole VIAL 40 MG VIAL IV SCH ×2 (08:10→21:35)
[2022-05-19] MEDS: ceFAZolin 2 GM in NS PREMIX 2 GM/100 ML BAG IVPB SCH ×3 (00:21→10:59)
[2022-05-19] MEDS: Lactated Ringers 1000 ml BAG 1,000 ML IV SCH (03:25)
[2022-05-19] MEDS: Levothyroxine 100 MCG/5 ML VIAL IV SCH (06:00)
[2022-05-19] MEDS: Pantoprazole VIAL 40 MG VIAL IV SCH (08:59)
[2022-05-19] MEDS ORDERED: Escitalopram SOLN ORALSYR 5 MG/5 ML PO SCH (09:00)
[2022-05-19 15:38] VITALS: BP 133/70
[2022-05-24 01:46] LABS: Helicobacter pylori Result Not Detected; Specimen Source STOOL
== END 2022-05-19 15:50 | disposition home or self-care (01) | DRG 241 ==
LOC: SSU 19:16
PROVIDERS: ADMIT Surgery; ATTEND Surgery